=== PATIENT | male | born 1975 | race American Indian/Alaskan Native ===

== ENCOUNTER 2018-02-04 11:57 | Emergency (ER) | payer OTHER ==
[2018-02-04 12:13] VITALS: BP 151/91
--- NOTE | 2018-02-04 16:59 | Emergency Department Report ---
ED General Adult HPI - General Chief complaint: Dental/Oral Stated complaint: TOOTHACHE Source: patient Mode of arrival: Ambulatory Limitations: No Limitations - Related Data Allergies Allergy/AdvReac Type Severity Reaction Status Date / Time Penicillins Allergy Unknown Verified 02/04/18 12:14 ED Review of Systems ROS: Stated complaint: TOOTHACHE Other details as noted in HPI ED Past Medical Hx - Past Medical History Previous Medical History?: No - Surgical History Past Surgical History?: No - Social History Smoking Status: Never Smoker Substance Use Type: Alcohol ED Physical Exam - General Limitations: No Limitations ED Course Vital Signs 02/04/18 12:12 Temperature 98.8 F Pulse Rate 87 Respiratory 18 Rate Blood Pressure 151/91 O2 Sat by Pulse 97 Oximetry Critical care attestation.: If time is entered above; I have spent that time in minutes in the direct care of this critically ill patient, excluding procedure time. ED Disposition Condition: Stable Referrals: PRIMARY CARE [Primary Care Provider] - 3-5 Days
[2018-02-04] MEDS ORDERED: MOTRIN ONE (17:41)
--- NOTE | 2018-02-04 20:03 | Emergency Department Report ---
ED ENT HPI - General Chief complaint: Dental/Oral Stated complaint: TOOTHACHE Time Seen by Provider: 02/04/18 19:50 Source: patient Mode of arrival: Ambulatory Limitations: No Limitations - History of Present Illness Initial comments: He states is a 40-year-old [place] male who presents with right lower dental pain. Patient states feeling to left or to fell out 2 days ago. Patient states now he is experiencing excruciating pain. He reports pain is 10 out of 10 on pain scale, sharp and constant. Patient states he has a dentist appointment tomorrow at 9:00. He tried to get in today with dizziness. All this. Patient denies OTC swallowing, fever, drooling, shortness of breath, and chest pain. MD complaint: tooth pain Onset/Timin -: days(s) Location: tooth # (#28) 1 - Dental caries Severity: severe Severity scale (0 -10): 10 Quality: aching, constant, other (throbbing) Consistency: constant Improves with: none Worsens with: eating Context- Dental: history of dental caries Associated Symptoms: gum swelling, toothache. denies: fever, cough, pain with swallowing, sore throat, tinnitus, hearing loss, discharge from ear, rhinorrhea - Related Data Previous Rx's Medication Instructions Recorded Last Taken Type Acetaminophen/Codeine [Tylenol 1 tab PO Q6H PRN #8 tab 02/04/18 Unknown Rx /Codeine # 3 tab] Allergies Allergy/AdvReac Type Severity Reaction Status Date / Time Penicillins Allergy Unknown Verified 02/04/18 12:14 ED Dental HPI - General Chief complaint: Dental/Oral Stated complaint: TOOTHACHE Time Seen by Provider: 02/04/18 19:50 Source: patient Mode of arrival: Ambulatory Limitations: No Limitations - Related Data Previous Rx's Medication Instructions Recorded Last Taken Type Acetaminophen/Codeine [Tylenol 1 tab PO Q6H PRN #8 tab 02/04/18 Unknown Rx /Codeine # 3 tab] Allergies Allergy/AdvReac Type Severity Reaction Status Date / Time Penicillins Allergy Unknown Verified 02/04/18 12:14 ED Review of Systems ROS: Stated complaint: TOOTHACHE Other details as noted in HPI Constitutional: denies: chills, fever ENT: dental pain (toothache, right lower side). denies: ear pain, throat pain Respiratory: denies: cough, shortness of breath, wheezing Cardiovascular: denies: chest pain, palpitations Gastrointestinal: denies: abdominal pain, nausea, diarrhea Skin: denies: rash, lesions Neurological: denies: headache, weakness, paresthesias Psychiatric: denies: anxiety, depression ED Past Medical Hx - Past Medical History Previous Medical History?: No - Surgical History Past Surgical History?: No - Social History Smoking Status: Never Smoker Substance Use Type: Alcohol - Medications Home Medications: Home Medications Medication Instructions Recorded Confirmed Last Taken Type Acetaminophen/Codeine [Tylenol 1 tab PO Q6H PRN #8 tab 02/04/18 Unknown Rx /Codeine # 3 tab] ED Physical Exam - General Limitations: No Limitations General appearance: alert, in no apparent distress, obese (morbidly obese) - ENT ENT exam: Present: mucous membranes moist, other (#28 dental caries, tenderness , mucosal swelling) - Respiratory Respiratory exam: Present: normal lung sounds bilaterally. Absent: respiratory distress - Cardiovascular Cardiovascular Exam: Present: regular rate, normal rhythm. Absent: systolic murmur, diastolic murmur, rubs, gallop - GI/Abdominal GI/Abdominal exam: Present: soft, normal bowel sounds - Neurological Exam Neurological exam: Present: alert, oriented X3 - Psychiatric Psychiatric exam: Present: normal affect, normal mood - Skin Skin exam: Present: warm, dry, intact, normal color. Absent: rash ED Course Vital Signs 02/04/18 12:12 Temperature 98.8 F Pulse Rate 87 Respiratory 18 Rate Blood Pressure 151/91 O2 Sat by Pulse 97 Oximetry ED Medical Decision Making - Medical Decision Making This is a 42-year-old male that presents with tooth ache and right side facial swelling for 2 days. Patient is stable and was examined by me. Given norco once in ER. Susceptible of dental caries. Discussed plan with patient. He agreed with ER plan. Discharged home with Tylenol with codeine. Reviewed report on [facility], patient has no prescriptions history. Follow up with dentist in the morning. Critical care attestation.: If time is entered above; I have spent that time in minutes in the direct care of this critically ill patient, excluding procedure time. ED Disposition Clinical Impression: Toothache, Dental caries Disposition: - TO HOME OR SELFCARE Is pt being admited?: No Does the pt Need Aspirin: No Condition: Stable Instructions: Dental Caries (ED), Toothache (ED) Additional Instructions: Take pain medication every 6 hours as needed for pain. Follow up with Dentist in 24-72 hours. Prescriptions: Acetaminophen/Codeine [Tylenol /Codeine # 3 tab] 1 tab PO Q6H PRN #8 tab PRN Reason: Pain , Severe (7-10) Referrals: [facility] [Outside] - 3-5 Days Forms: Work/School Release Form(ED) Time of Disposition: 20:16 Print Language: YAKUT
[2018-02-04] MEDS ORDERED: NORCO 5/325 PO ONE (20:13)
== END 2018-02-04 20:30 | disposition home or self-care (01) ==
LOC: ED 11:57
DX: K02.9 Dental caries, unspecified (principal); K06.8 Other specified disorders of gingiva and edentulous alveolar ridge; Z88.0 Allergy status to penicillin
CPT/HCPCS: 99282